=== PATIENT | female | born 1935 | race Caucasian/White ===

== ENCOUNTER 2017-03-14 14:09 | Outpatient (CLI) | payer MEDICARE | END 2017-03-14 14:10 | disposition home or self-care (01) | LOC: MADLAB 14:09 | PROVIDERS: ATTEND Family Medicine | DX: R10.9 Unspecified abdominal pain (principal) | CPT/HCPCS: 36415; 87077; 87086; 87186 ==

== ENCOUNTER 2017-06-04 16:24 | Emergency (ER) | payer MEDICARE ==
[2017-06-04 16:39] LABS: #Basophils 0.1 thou/uL (0.0-0.2); #Eosinphils 0.1 thou/uL (0.0-0.7); #Lymphocytes 2.1 thou/uL (1.20-3.40); #Monocytes 0.7 thou/uL (0.11-0.59); #Neutrophils 4.6 thou/uL (1.40-6.50); %Basophils 0.7 % (0.0-1.0); %Eosinophils 1.3 % (0.0-10.0); %Lymphocytes 27.9 % (21.0-51.0); %Monocytes 8.9 % (0.0-10.0); %Neutrophils 61.2 % (42.0-75.0); Hemoglobin 11.3 g/dL (12.0-16.0); Mean Corpuscular HGB CONC 30.8 g/dL (32.0-36.0); Mean Corpuscular Hemoglobin 27.2 pg (27.0-31.0); Mean Corpuscular Volume 88.2 fl (81.0-99.0); Mean Platelet Volume 7.6 fL (7.4-10.4); Platelet Count 262 thou/uL (130-400); RBC Distribution Width 13.2 % (11.5-14.5); Red Blood Cell (RBC) Count 4.15 mill/uL (4.20-5.40); White Blood Cell (WBC) Count 7.4 thou/uL (4.8-10.8)
[2017-06-04 16:55] LABS: ALT (SGPT) 20 U/L (8-55); AST (SGOT) 23 U/L (5-34); Albumin 3.5 g/dL (3.4-4.8); Alkaline Phosphatase 108 U/L (40-150); Anion Gap 14 mmol/L (10-20); BUN (Urea Nitrogen) 25 mg/dL (9.8-20.1); Bilirubin, Total 0.6 mg/dL (0.2-1.2); Calc. Creatinine Clearance 0 mL/min (70-130); Carbon Dioxide 30 mmol/L (23-31); Chloride 100 mmol/L (98-107); Estimated GFR-MDRD 79; Globulin 3.2 g/dL (2.4-3.5); Glucose 90 mg/dL (83-110); Magnesium 2.2 mg/dL (1.6-2.6); Potassium 4.4 mmol/L (3.5-5.1); Protein, Total 6.7 g/dL (6.0-8.3); Sodium 140 mmol/L (136-145)
[2017-06-04] MEDS ORDERED: [UNRECOGNIZED DRUG - OTHER] TOP ONE (18:12)
[2017-06-04] MEDS ORDERED: Midazolam HCl 10 mg/2 ml Vial ONE (18:12)
[2017-06-04] MEDS ORDERED: Metoprolol Tartrate 5 MG/5 ML VIAL ONE (18:12)
[2017-06-04] MEDS ORDERED: Metoprolol Tartrate 50 MG TAB ONE (18:55)
[2017-06-04] MEDS ORDERED: Furosemide 20 MG/2 ML VIAL ONE (19:00)
--- NOTE | 2017-06-04 19:01 | RAD ---
CHEST ONE VIEW: History: Dyspnea. Comparison: 12-19-16 FINDINGS: Heart size is enlarged. There are layering bilateral pleural effusions. No pneumothorax. Mild pulmona ry venous congestion. Lungs are severely hypoinflated. IMPRESSION: Severe lung hypoinflation with cardiomegaly and small effusions. POS: [facility]
== END 2017-06-04 21:24 | disposition home or self-care (01) ==
LOC: MADERS 16:24
DX: I11.0 Hypertensive heart disease with heart failure (principal); I50.9 Heart failure, unspecified; I48.91 Unspecified atrial fibrillation; Z79.899 Other long term (current) drug therapy
CPT/HCPCS: 71045; 80053; 83735; 83880; 85025; 93005; 96374; 96375; 96376; J1940; J2250

== ENCOUNTER 2017-06-19 17:27 | Outpatient (CLI) | payer MEDICARE ==
[2017-06-19 18:26] LABS: #Lymphocytes 1.3 thou/uL (1.20-3.40); #Monocytes 0.5 thou/uL (0.11-0.59); #Neutrophils 4.2 thou/uL (1.40-6.50); %Basophils 0.5 % (0.0-1.0); %Eosinophils 0.7 % (0.0-10.0); %Lymphocytes 21.4 % (21.0-51.0); %Monocytes 8.6 % (0.0-10.0); %Neutrophils 68.7 % (42.0-75.0); Hemoglobin 11.8 g/dL (12.0-16.0); Mean Corpuscular HGB CONC 29.5 g/dL (32.0-36.0); Mean Corpuscular Hemoglobin 26.1 pg (27.0-31.0); Mean Corpuscular Volume 88.7 fl (81.0-99.0); Platelet Count 247 thou/uL (130-400); RBC Distribution Width 14.2 % (11.5-14.5); Red Blood Cell (RBC) Count 4.52 mill/uL (4.20-5.40); White Blood Cell (WBC) Count 6.1 thou/uL (4.8-10.8)
[2017-06-19 18:53] LABS: ALT (SGPT) 25 U/L (8-55); AST (SGOT) 26 U/L (5-34); Albumin 3.7 g/dL (3.4-4.8); Alkaline Phosphatase 110 U/L (40-150); Anion Gap 18 mmol/L (10-20); BUN (Urea Nitrogen) 21 mg/dL (9.8-20.1); Bilirubin, Total 0.8 mg/dL (0.2-1.2); Calc. Creatinine Clearance 0 mL/min (70-130); Calcium 9.2 mg/dL (7.8-10.44); Carbon Dioxide 31 mmol/L (23-31); Chloride 99 mmol/L (98-107); Estimated GFR-MDRD Greater than 90; Globulin 3.2 g/dL (2.4-3.5); Glucose 75 mg/dL (83-110); Potassium 3.9 mmol/L (3.5-5.1); Protein, Total 6.9 g/dL (6.0-8.3); Sodium 144 mmol/L (136-145)
[2017-06-19 20:48] LABS: Hemoglobin A1c 5.2 % (4.0-6.0)
== END 2017-06-19 17:28 | disposition home or self-care (01) ==
LOC: MADLAB 17:27
PROVIDERS: ATTEND Family Medicine
DX: I11.0 Hypertensive heart disease with heart failure (principal); I50.9 Heart failure, unspecified; R73.9 Hyperglycemia, unspecified; R53.83 Other fatigue; F41.1 Generalized anxiety disorder; R06.02 Shortness of breath
CPT/HCPCS: 36415; 80053; 83036; 83880; 84443; 85025

== ENCOUNTER 2017-08-24 14:06 | Outpatient (CLI) | payer MEDICARE ==
[2017-08-24 15:47] LABS: Clarity Clear (Clear); Leukocyte Negative (Negative); Nitrite Negative (Negative); Protein, Urine (Dipstick) Trace mg/dL (Neg-Trace); pH, Urine 5.5 (5.0-9.0)
[2017-08-24 15:48] LABS: Bilirubin Negative (Negative); Blood, Urine Negative (Negative); Glucose, Urine (Dipstick) Negative (Negative)
[2017-08-24 15:58] LABS: Bacteria/HPF Rare-Few HPF (None Seen); Hyaline Casts/LPF 7-10 HYALINE CAST LPF (0-3 Hyaline); Other Casts/LPF 0-3 FINELY GRAN LPF (0-3 Hyaline); RBC/HPF 0-3 HPF (0-3); WBC/HPF None Seen HPF (0-3)
== END 2017-08-24 14:07 | disposition home or self-care (01) ==
LOC: MADLABBHPM 14:06
PROVIDERS: ATTEND Family Medicine
DX: I11.0 Hypertensive heart disease with heart failure (principal); I50.9 Heart failure, unspecified; I48.91 Unspecified atrial fibrillation; Z79.01 Long term (current) use of anticoagulants
CPT/HCPCS: 36415; 81001; 87086

== ENCOUNTER 2017-09-13 14:52 | Inpatient (IN) | payer MEDICARE ==
[2017-09-13 15:49] LABS: Bilirubin Small (Negative); Blood, Urine Negative (Negative); Glucose, Urine (Dipstick) Negative (Negative); Leukocyte Small (Negative); Nitrite Negative (Negative); Protein, Urine (Dipstick) 30 mg/dL (Neg-Trace); Specific Gravity, Urine 1.015 (1.005-1.030)
[2017-09-13 15:53] LABS: Bacteria/HPF 2+ HPF (None Seen); Clarity Hazy (Clear); RBC/HPF 0-3 HPF (0-3); WBC/HPF 0-3 HPF (0-3)
[2017-09-13 15:54] LABS: #Lymphocytes 0.8 thou/uL (1.20-3.40); #Monocytes 0.4 thou/uL (0.11-0.59); #Neutrophils 3.8 thou/uL (1.40-6.50); %Basophils 0.8 % (0.0-1.0); %Eosinophils 0.5 % (0.0-10.0); %Lymphocytes 15.3 % (21.0-51.0); %Monocytes 7.2 % (0.0-10.0); %Neutrophils 76.2 % (42.0-75.0); Hemoglobin 11.2 g/dL (12.0-16.0); Mean Corpuscular Hemoglobin 25.7 pg (27.0-31.0); Mean Corpuscular Volume 80.2 fl (81.0-99.0); Mean Platelet Volume 6.8 fL (7.4-10.4); Platelet Count 240 thou/uL (130-400); RBC Distribution Width 15.4 % (11.5-14.5); Red Blood Cell (RBC) Count 4.38 mill/uL (4.20-5.40)
[2017-09-13] MEDS ORDERED: Furosemide 40 MG/4 ML VIAL SLOW IVP SCH (16:00)
[2017-09-13 16:06] LABS: ALT (SGPT) 17 U/L (8-55); AST (SGOT) 23 U/L (5-34); Albumin 3.3 g/dL (3.4-4.8); Alkaline Phosphatase 121 U/L (40-150); Anion Gap 17 mmol/L (10-20); BUN (Urea Nitrogen) 23 mg/dL (9.8-20.1); Bilirubin, Total 1.2 mg/dL (0.2-1.2); Calc. Creatinine Clearance 96 mL/min (70-130); Calcium 9.3 mg/dL (7.8-10.44); Carbon Dioxide 30 mmol/L (23-31); Chloride 99 mmol/L (98-107); Estimated GFR-MDRD 69; Globulin 3.4 g/dL (2.4-3.5); Glucose 120 mg/dL (83-110); Potassium 3.8 mmol/L (3.5-5.1); Protein, Total 6.7 g/dL (6.0-8.3); Sodium 142 mmol/L (136-145)
[2017-09-13] MEDS ORDERED: Ondansetron ODT 4 MG TAB PO PRN (17:43)
[2017-09-13] MEDS ORDERED: Acetaminophen 325 MG TAB PO PRN (17:43)
[2017-09-13] MEDS ORDERED: Lidocaine 5% Patch TD SCH (18:00)
[2017-09-13] MEDS: Enoxaparin Sodium 30 MG/0.3 ML SYRINGE SC SCH (20:23)
[2017-09-13] MEDS: Docusate 100 MG CAP PO SCH (20:25)
[2017-09-13] MEDS: traMADol HCl 50 MG TAB PO SCH (20:32)
[2017-09-13] MEDS: Lidocaine 5% Patch TD SCH (20:43)
[2017-09-13] MEDS: clonazePAM 0.5 MG TAB PO PRN (22:10)
--- NOTE | 2017-09-13 22:52 | HP ---
DATE OF ADMISSION: 09/13/2017 ADMITTING AND PRIMARY CARE PHYSICIAN: Payal Uribe MD REASON FOR ADMISSION: Shortness of breath, fatigue, and CHF exacerbation. HISTORY OF PRESENT ILLNESS: Ms. Mejia is an 82-year-old female with a medical history of obesity, atrial fib, hypertension, asthma, generalized anxiety, and CHF. The patient presented to my office today due to a 2-week history of lower extremity swelling, shortness of breath, and fatigue. 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 For the past 2 weeks, she has been taking Lasix twice a day and sometimes 3 times a day with no improvement. Legs have now been seeping due to the swelling. She denies any chest pain. She denies any palpitation. Complains of dizziness, fatigue. Denies any upper respiratory infections. Denies any fluttering or palpitations in the chest. Denies any nausea or vomiting. The patient states she did not follow up with her soccer commentator, Dr. Fernandez, as she was recommended at beginning of the year. PAST MEDICAL HISTORY: Hypertension, atrial fib, CHF, asthma, generalized anxiety. PAST SURGICAL HISTORY: Hysterectomy and cataract surgery bilaterally. SOCIAL HISTORY: The patient lives in a home with her . Denies any tobacco or illicit drug use or alcohol use. MEDICATIONS: Albuterol nebs as needed 4 times a day, metoprolol 50 ER twice a day, Lasix 40 twice a day, tramadol 50 b.i.d. p.r.n., ProAir 2 puffs q.6 hours as needed, Klonopin 0.5 half tab twice a day p.r.n. anxiety. ALLERGIES: HYDROCODONE, the reaction is agitation. FAMILY HISTORY: Positive for hypertension. CODE STATUS: DNR. REVIEW OF SYSTEMS: Complete review of systems was negative, otherwise mentioned in the H&P or below: Constitutional: Denies weight loss. Complains of weight gain, lower extremity edema, and fatigue. HEENT: Denies nosebleeds, headache, neck pain, sore throat, vision changes. Cardiovascular: Denies chest pain, palpitation. Complains of shortness of breath. Respiratory: Denies productive cough. Complains of shortness of breath. Gastrointestinal: Denies abdominal pain, poor appetite, diarrhea, or constipation. Genitourinary: Denies frequency, urgency, or dysuria. Musculoskeletal: Denies pain. Complains of lower extremity swelling. Neurologic: Denies confusion, headaches or blurry vision. Skin: Complains of rash to the bilateral lower extremity and seeping from lower extremity. PHYSICAL EXAMINATION: VITAL SIGNS: Temperature 98.7, pulse 118, respirations 22, O2 sat 92% on room air, blood pressure 141/76, weight 243 pounds. GENERAL APPEARANCE: The patient is very pleasant, alert, awake, oriented x3. HEENT: Head, normocephalic, atraumatic. Eyes, pupils round, reactive. Extraocular muscles intact. Conjunctivae are pink. Sclerae nonicteric. Mouth , oral mucous membrane is moist. No erythema. NECK: Soft, supple, no JVD or carotid bruits. CARDIOVASCULAR: The patient has irregularly irregular rhythm, tachycardic, S1, S2 sounds heard, very mild faint systolic murmur could be appreciable over the aortic region. No S3 or S4. RESPIRATORY: Clear to auscultation bilaterally. ABDOMEN: Positive bowel sounds, nontender, nondistended. EXTREMITIES: Pulses +2 for dorsalis and radial pulses and +3 bilateral pitting edema. SKIN: Small area of erythema with weeping clear fluid to medial right lower extremity. No ulcers noted. ASSESSMENT AND PLAN: This is an 82-year-old female with a history of hypertension, atrial fibrillation, congestive heart failure, anxiety, and asthma who presented due to shortness of breath, fatigue, and lower extremity edema. The patient will be admitted to the medical floor for acute congestive heart failure exacerbation and generalized weakness. The patient will be started on IV Lasix 40 mg twice a day. We will resume all home medications. We will place the patient on 1500 mL fluid restriction and low sodium diet. We will order stat CBC, CMP, BNP, and urinalysis. We will order chest x-ray. We will replete electrolytes and monitor hemodynamic status. We will place the patient on Protonix for gastrointestinal prophylaxis and Lovenox for deep venous thrombosis prophylaxis. CODE STATUS: The patient is a DNR. DISPOSITION: Anticipate greater than 3 midnight stay due to fatigue and CHF and extensive comorbidities. DISCHARGE PLAN: Home once medically stable. [facility]PITALStacie
[2017-09-14] MEDS: Furosemide 40 MG/4 ML VIAL SLOW IVP SCH ×2 (05:46→13:42)
[2017-09-14] MEDS ORDERED: Lidocaine Patch Removal 1 EACH TOP SCH (06:00)
[2017-09-14] MEDS: traMADol HCl 50 MG TAB PO SCH ×2 (08:59→20:14)
[2017-09-14] MEDS: Lidocaine Patch Removal 1 EACH TOP SCH (09:00)
[2017-09-14] MEDS: Docusate 100 MG CAP PO SCH ×2 (09:03→20:09)
[2017-09-14] MEDS: Lidocaine 5% Patch TD SCH (20:10)
[2017-09-14] MEDS: Enoxaparin Sodium 30 MG/0.3 ML SYRINGE SC SCH (20:10)
[2017-09-14] MEDS: clonazePAM 0.5 MG TAB PO PRN (20:15)
[2017-09-15] MEDS: Furosemide 40 MG/4 ML VIAL SLOW IVP SCH ×2 (05:47→13:43)
[2017-09-15] MEDS: Lidocaine Patch Removal 1 EACH TOP SCH (09:00)
[2017-09-15] MEDS: Docusate 100 MG CAP PO SCH ×2 (10:58→21:36)
[2017-09-15] MEDS: traMADol HCl 50 MG TAB PO SCH (10:58)
[2017-09-15 11:59] LABS: Mean Corpuscular HGB CONC 29.8 g/dL (32.0-36.0); Mean Corpuscular Hemoglobin 24.9 pg (27.0-31.0); Mean Corpuscular Volume 83.6 fl (81.0-99.0); Mean Platelet Volume 7.6 fL (7.4-10.4); Platelet Count 227 thou/uL (130-400); RBC Distribution Width 15.8 % (11.5-14.5); Red Blood Cell (RBC) Count 4.83 mill/uL (4.20-5.40); White Blood Cell (WBC) Count 8.6 thou/uL (4.8-10.8)
[2017-09-15 12:14] LABS: Anion Gap 17 mmol/L (10-20)
[2017-09-15 12:34] LABS: #Basophils 0.1 thou/uL (0.0-0.2); #Monocytes 1.1 thou/uL (0.11-0.59); #Neutrophils 6.4 thou/uL (1.40-6.50); %Basophils 0.8 % (0.0-1.0); %Eosinophils 0.1 % (0.0-10.0); %Monocytes 12.3 % (0.0-10.0); %Neutrophils 74.8 % (42.0-75.0); Lymphocytes 13 % (21-51); MDiff Complete? YES; Monocytes 12 % (0-10); Neutrophil 75 % (42-75); PLT Morphology Comment Appears Adequate; RBC Morphology Normal
[2017-09-15 12:45] LABS: ALT (SGPT) 23 U/L (8-55); AST (SGOT) 30 U/L (5-34); Albumin 3.5 g/dL (3.4-4.8); Alkaline Phosphatase 137 U/L (40-150); BUN (Urea Nitrogen) 33 mg/dL (9.8-20.1); Calc. Creatinine Clearance 57 mL/min (70-130); Calcium 9.2 mg/dL (7.8-10.44); Carbon Dioxide 33 mmol/L (23-31); Chloride 96 mmol/L (98-107); Estimated GFR-MDRD 39; Globulin 3.7 g/dL (2.4-3.5); Glucose 120 mg/dL (83-110); Phosphorus 6.3 mg/dL (2.3-4.7); Potassium 5.3 mmol/L (3.5-5.1); Protein, Total 7.2 g/dL (6.0-8.3); Sodium 141 mmol/L (136-145)
--- NOTE | 2017-09-15 13:17 | RAD ---
PORTABLE SEMIUPRIGHT FRONTAL CHEST RADIOGRAPH: 09/15/2017 HISTORY: CHF. Shortness of breath. COMPARISON: 06/04/2017 FINDINGS: There is pulmonary vascular prominence, new since the 06/04/2017 exam. There is no pneumothorax seen. There is bibasilar dense pleural and parenchymal opacity, right greater than left. The cardiac silho uette is prominent. The osseous structures demonstrate degenerative change involving the bilateral glenohumeral joints an d the acromioclavicular joints. IMPRESSION: Pulmonary vascular congestion with dense pleural and parenchymal opacity in both lung bases, suggesti ng pulmonary edema. Infectious pneumonitis or aspiration cannot be excluded. Recommend up imaging f ollowing treatment to document resolution. POS: [facility]
[2017-09-15] MEDS: Enoxaparin Sodium 30 MG/0.3 ML SYRINGE SC SCH (21:34)
[2017-09-15] MEDS: Lidocaine 5% Patch TD SCH (21:34)
[2017-09-16 03:02] VITALS: BMI 43.1
[2017-09-16 05:45] LABS: #Basophils 0.1 thou/uL (0.0-0.2); #Monocytes 0.9 thou/uL (0.11-0.59); %Basophils 0.8 % (0.0-1.0); %Eosinophils 0.1 % (0.0-10.0); %Monocytes 9.9 % (0.0-10.0); %Neutrophils 78.4 % (42.0-75.0); Anion Gap 21 mmol/L (10-20); BUN (Urea Nitrogen) 40 mg/dL (9.8-20.1); Calc. Creatinine Clearance 48 mL/min (70-130); Calcium 9.5 mg/dL (7.8-10.44); Carbon Dioxide 25 mmol/L (23-31); Chloride 97 mmol/L (98-107); Estimated GFR-MDRD 31; Glucose 101 mg/dL (83-110); Hemoglobin 12.4 g/dL (12.0-16.0); Mean Corpuscular HGB CONC 31.5 g/dL (32.0-36.0); Mean Corpuscular Hemoglobin 26.6 pg (27.0-31.0); Mean Corpuscular Volume 84.3 fl (81.0-99.0); Mean Platelet Volume 7.9 fL (7.4-10.4); Platelet Count 242 thou/uL (130-400); Potassium 5.8 mmol/L (3.5-5.1); RBC Distribution Width 16.2 % (11.5-14.5); Red Blood Cell (RBC) Count 4.66 mill/uL (4.20-5.40); Sodium 137 mmol/L (136-145); White Blood Cell (WBC) Count 8.9 thou/uL (4.8-10.8)
[2017-09-16] MEDS ORDERED: Sodium Chloride 0.9% 1,000 ML IV SCH (09:30)
[2017-09-16] MEDS: Docusate 100 MG CAP PO SCH (09:50)
[2017-09-16] MEDS: Lidocaine Patch Removal 1 EACH TOP SCH (09:50)
--- NOTE | 2017-09-16 10:23 | CT ---
HEAD CT WITHOUT CONTRAST: Date: 09/16/17 COMPARISON: None. HISTORY: Altered mental status. TECHNIQUE: Serial axial CT imaging at 5 mm intervals from vertex through skull base without contrast. FINDINGS: Imaged paranasal sinuses and mastoid air cells are well aerated. No displaced calvarial fracture seen . The calvarium is incompletely imaged posteriorly. No intracranial hemorrhage, midline shift, mass effect, or ventricular enlargement. Motion artifact s lightly limits detailed assessment of the brain parenchyma. IMPRESSION: Limited examination demonstrating no evidence for intracranial hemorrhage. POS: [facility]
--- NOTE | 2017-09-16 10:24 | RAD ---
PORTABLE UPRIGHT FRONTAL CHEST: Date: 09/16/17 COMPARISON: 09/15/17. HISTORY: CHF, shortness of breath. FINDINGS: Evaluation of the chest is markedly limited secondary to rotation to the right and shallow inspiratio n. No obvious pneumothorax is seen. There is prominent perihilar density with increased density in yara th lung bases suggesting nonspecific air space disease and bilateral pleural effusions, right greater than left. Aeration in the right lung base appears worsened. IMPRESSION: Suboptimal assessment secondary to technical limitations demonstrate findings suspicious for pulmonar y edema and/or infectious pneumonitis/aspiration, right greater than left. Follow-up advised. POS: [facility]
[2017-09-16 11:58] VITALS: BP 126/70; TEMP 98
[2017-09-16] MEDS ORDERED: [UNRECOGNIZED DRUG - REMARK] IVPB PRN (12:55)
[2017-09-16] MEDS ORDERED: Ampicillin/Sulbactam 1.5 GM in Sodium Chloride 0.9% 100 ML IVPB SCH (13:00)
--- NOTE | 2017-09-28 12:54 | PQF ---
Rj Mejia Olayemi, MD [id number] [facility] [id number] CLINICAL DOCUMENTATION CLARIFICATION FORM: POST DISCHARGE DATE: 09/28/2017 ATTN: Dr. Uribe Please exercise your independent, professional judgment in responding to the clarification form. Clinical indicators are provided on the bottom of this form for your review Please check appropriate box(s): HEART FAILURE: A. TYPE: [ ] Systolic / HFrEF [ + ] Diastolic / HFpEF [ ] Combined Systolic / Diastolic B. ACUITY [ ] Acute [ + ] Acute on Chronic [ ] Chronic [ ] Other diagnosis (please specify) [ ] Unable to determine In addition, please specify: Present on Admission (POA): [ ] Yes [ +] No [ ] Unable to determine For continuity of documentation, please document condition throughout progress notes and discharge summary. Thank You. CLINICAL INDICATORS - SIGNS / SYMPTOMS / LABS (per H&P/progress notes) Ejection Fraction =50-55%. Shortness of breath. Fatigue. Lower extremity edema. Acute congestive heart failure exacerbation. RISKS: (per H&P) Atrial fibrillation. Hypertension TREATMENTS: (per H&P/progress notes) IV Lasix. (This form is maintained as a part of the permanent medical record) 2014 [employer] All Rights Reserved Britni [email or web address] [phone] [email or web address]
== END 2017-09-16 15:20 | disposition short-term general hospital (02) | DRG 291 ==
LOC: MADMS 14:52
PROVIDERS: ADMIT Family Medicine; ATTEND Family Medicine
DX: I11.0 Hypertensive heart disease with heart failure (principal); G93.40 Encephalopathy, unspecified; J69.0 Pneumonitis due to inhalation of food and vomit; N17.9 Acute kidney failure, unspecified; I50.33 Acute on chronic diastolic (congestive) heart failure; I48.2 Chronic atrial fibrillation; J45.909 Unspecified asthma, uncomplicated; F41.9 Anxiety disorder, unspecified; E87.5 Hyperkalemia; R53.1 Weakness; Z66 Do not resuscitate; Z88.5 Allergy status to narcotic agent; Z79.899 Other long term (current) drug therapy
CPT/HCPCS: 36415; 36416; 70450; 71045; 80048; 80053; 81001; 83605; 83880; 84100; 84443; 84484; 85025; 87040; 87086; 94640; A4216; J0295; J1650; J1940; J7050; J7620; Q0162